=== PATIENT | female | born 1985 | race Caucasian/White ===

== ENCOUNTER 2022-03-16 19:06 | Emergency (ER) | payer OTHER, SELFPAY ==
[2022-03-16 19:43] VITALS: BP 130/74; PULSE 95; RESP 18; TEMP 37.4; O2SAT 98; BMI 27.0
[2022-03-16 20:29] LABS: Appearance Urine Clear (Clear); Bilirubin Urine Negative (Negative); Blood Urine 3+ (Negative); Color Urine Yellow (Yellow); Glucose Urine Negative (Negative); Ketones Urine 3+ (Negative); Leukocyte Esterase Urine Negative (Negative); Nitrite Urine Negative (Negative); Protein Urine Negative (Negative); Specific Gravity Urine 1.015 (1.000-1.030); Urobilinogen Urine 0.2 (0.2-1.0)
--- NOTE | 2022-03-16 20:33 | ED.BACK ---
HPI - Back Pain/Injury General Time Seen by Provider: 20:34 Date Seen: 03/16/22 Chief Complaint: Back Injury/Pain Stated Complaint: Pain, suspected slipped disk Time Seen by Provider: 03/16/22 20:33 Source: patient, RN notes reviewed and old records reviewed Mode of arrival: ambulatory Limitations: no limitations History of Present Illness HPI Narrative: Sarah is a very pleasant 36-year-old female with a history tobacco use, and chronic back pain who comes to the emergency room with increasing back pain. Patient notes that over the past few days even week she has had increasing back pain now it is centered on the right side radiating around to her side. It is associated with frequent urination but no dysuria. Patient denies possibility of as she is on control and took a test a few weeks ago. She has not had any nausea. She did have a sore throat this morning but attributed this to smoking. She is preferring to lay quietly. Does not feel that movement greatly increases her discomfort. Pain does radiate down the back of both legs not past the knees. Related Data Home Medications Medication Instructions Recorded Confirmed Tylenol 03/16/22 albuterol sulfate 2.5 mg/3 mL mg 03/16/22 (0.083 %) solution for nebulization Previous Rx's Medication Instructions Recorded ciprofloxacin HCl 500 mg tablet 500 mg PO BID #10 tabs 03/16/22 Allergies Allergy/AdvReac Type Severity Reaction Status Date / Time amoxicillin AdvReac yeast Verified 03/16/22 21:10 infections Penicillins AdvReac Verified 03/16/22 21:10 Review of Systems Const: Reports: other (States always feels cold); Denies: fever or chills Eyes: Denies: change in vision ENMT: Reports: throat pain; Denies: throat swelling or difficulty swallowing Cardio: Denies: chest pain, swelling of feet/ankles or shortness of breath with exertion Resp: Denies: shortness of breath, cough or wheezing GI: Denies: abdominal pain, nausea, vomiting, diarrhea or difficulty swallowing : Reports: urinary frequency; Denies: painful urination, urinary urgency or blood in urine Musculo: Reports: back pain Integ/Breast: Denies: rash Neuro: Reports: headache Allergy/Immuno: Denies: throat swelling or wheezing PFSH PFSH Social History Smoking Status: Current every day smoker How often do you have a drink containing alcohol: monthly or less AUDIT-C Alcohol total score: 1 Non-prescribed substance use: denies use Exam Narrative: Exam Narrative: Patient is alert and oriented. Very pleasant young woman. No acute distress but she does appear to be uncomfortable. Eyes are clear. Head is atraumatic normocephalic. Neck is supple no lymphadenopathy. Movement full. Oral cavity with moist mucous membranes. No significant erythema or exudate in posterior oropharynx. Heart with regular rate and rhythm. Lungs are clear to auscultation. Abdomen is soft nontender. Palpation down spine shows some mild tenderness noted at the base over the sacrum and L5. No skin changes here. Positive for right CVA tenderness with percussion. Able to sit up without difficulty. Lower extremity strength and motion intact. No lower extremity edema. Const: Vital Signs, click to edit/add: Vital Signs - 24 hr 03/16/22 19:43 03/16/22 21:15 Temperature 99.3 F Pulse Rate [Left P ulse Oximeter] 95 89 Respiratory Rate 18 18 Blood Pressure [Le ft Upper Arm] 125/74 Blood Pressure [Ri ght Upper Arm] 130/74 Pulse Oximetry 98 95 Oxygen Delivery Me thod Room Air Room Air Documenting provider has reviewed patient's vital signs: yes Course Course Hospital Course: Will place IV, Toradol 15 mg IV and normal saline 1 L. CBC, comprehensive panel, CRP, urinalysis with is ordered. Plan on CT but would like to wait for full urinalysis as well as creatinine. Differential diagnosis does include but is not limited to musculoskeletal pain, kidney stones, pyelonephritis, COVID. Reevaluation(s) Reevaluation #1: Patient is feeling improved after Toradol and fluids. She did receive 2 L of fluids. No evidence of stone on CT in spite of hematuria Vital Signs Vital signs: Initial Vital Signs Temperature 99.3 F 03/16/22 19:43 Temperature Source Temporal Artery Scan 03/16/22 19:43 Pulse Rate 95 03/16/22 19:43 Respiratory Rate 18 03/16/22 19:43 Blood Pressure 130/74 03/16/22 19:43 Blood Pressure Mean 92 03/16/22 19:43 Blood Pressure Position Sitting 03/16/22 19:43 Pulse Oximetry 98 03/16/22 19:43 Oxygen Delivery Method 03/16/22 19:43 Vital Signs Temperature 99.3 F 03/16/22 19:43 Pulse Rate 95 03/16/22 19:43 Respiratory Rate 18 03/16/22 19:43 Blood Pressure 130/74 03/16/22 19:43 Pulse Oximetry 98 03/16/22 19:43 Oxygen Delivery Method 03/16/22 19:43 Temperature 99.3 F 03/16/22 19:43 Pulse Rate 89 03/16/22 21:15 Respiratory Rate 18 03/16/22 21:15 Blood Pressure 125/74 03/16/22 21:15 Pulse Oximetry 95 03/16/22 21:15 Oxygen Delivery Method 03/16/22 21:15 MDM - Back Pain/Injury MDM Narrative Medical decision making narrative: 1. COVID-patient has tested positive for COVID which would be consistent with a mild leukopenia. She has been afebrile in the emergency room with appropriate oxygen levels. She is eligible for antiviral but declines at this time. Limiting tobacco use. Of course seek medical attention for worsening symptoms. 2. Hematuria-no evidence of stone on CT. I think that it is important we send this urine for culture. I am suspicious of UTI. Rocephin 1 g IV at this time. Cipro 500 mg p.o. b.i.d. will be started. Patient has a follow-up appoint with her primary on WednesdayMarch 18. At that time would have them checked the culture and the may discontinue the antibiotic if the culture is negative. 3. Disposition-ibuprofen or Tylenol as needed for discomfort. Push fluids. No work this week. Return to the emergency room for worsening symptoms. Lab Data Attestation: I reviewed the patient's lab results. Labs: Lab Results 03/16/22 03/16/22 03/16/22 Range/Units 20:19 20:40 20:41 WBC (4.50-11.00) K/uL RBC (4.00-5.20) m/uL Hgb (12.0-16.0) gm/dL Hct (33.0-51.0) % MCV (80-100) fL MCH (26-34) pg MCHC (32-36) gm/dL RDW Coeff of Jamie (11.5-15.5) % Plt Count (140-440) K/uL Neut % (Auto) (42.0-72.0) % Lymph % (Auto) (20-44) % Leslie % (Auto) (0.0-11.0) % Eos % (Auto) (0.0-7.0) % Baso % (Auto) (0.0-3.0) % Neut # (Auto) (1.7-7.0) K/uL Lymph # (Auto) (0.90-2.90) K/uL Leslie # (Auto) (0.00-0.90) K/UL Eos # (Auto) (0.00-0.50) K/uL Baso # (Auto) (0.00-0.30) K/uL Abs Immat Gran (auto) (0.00-0.30) K/uL Sodium (135-149) mmol/L Potassium (3.6-5.1) mmol/L Chloride (96-114) mmol/L Carbon Dioxide (20-32) mmol/L BUN (5-24) mg/dL Creatinine (0.5-1.5) mg/dL Estimated Creat Clear Estimated GFR ml/min Glucose (60-115) mg/dL Calcium (8.4-10.6) mg/dL Total Bilirubin (0.1-1.5) mg/dL AST (12-35) U/L ALT (4-35) U/L Alkaline Phosphatase (40-150) U/L C-Reactive Protein (0.5-1.0) mg/dL Total Protein (6.0-8.3) g/dL Albumin (3.3-5.0) g/dL Urine Color Yellow Yellow (Yellow) Urine Appearance Clear Clear (Clear) Urine pH 6.0 6.0 (5.0-8.5) Ur Specific [place] 1.015 1.015 (1.000-1.030) Urine Protein Negative Negative (Negative) Urine Glucose (UA) Negative Negative (Negative) Urine Ketones 3+ A 3+ A (Negative) Urine Blood 3+ A 3+ A (Negative) Urine Nitrite Negative Negative (Negative) Urine Bilirubin Negative Negative (Negative) Urine Urobilinogen 0.2 0.2 (0.2-1.0) Ur Leukocyte Esterase Negative Negative (Negative) Urine RBC 5-10 A 10-25 A (0-2) Urine WBC 2-5 0-2 (0-5) Ur Squamous Epith Cells None None (None-Few) Urine Bacteria None None (None) Urine HCG, Qual Negative (Negative) SARS-CoV-2 (PCR) (Negative) Influenza Type A (PCR) (Negative) Influenza Type B (PCR) (Negative) Group A Strep DNA (Not Detectd) 03/16/22 03/16/22 03/16/22 Range/Units 20:43 20:43 21:00 WBC 3.98 L (4.50-11.00) K/uL RBC 4.51 (4.00-5.20) m/uL Hgb 13.9 (12.0-16.0) gm/dL Hct 41.6 (33.0-51.0) % MCV 92 (80-100) fL MCH 31 (26-34) pg MCHC 33 (32-36) gm/dL RDW Coeff of Jamie 11.7 (11.5-15.5) % Plt Count 161 (140-440) K/uL Neut % (Auto) 82.0 H (42.0-72.0) % Lymph % (Auto) 4.8 L (20-44) % Leslie % (Auto) 12.3 H (0.0-11.0) % Eos % (Auto) 0.3 (0.0-7.0) % Baso % (Auto) 0.3 (0.0-3.0) % Neut # (Auto) 3.30 (1.7-7.0) K/uL Lymph # (Auto) 0.20 L (0.90-2.90) K/uL Leslie # (Auto) 0.50 (0.00-0.90) K/UL Eos # (Auto) 0.00 (0.00-0.50) K/uL Baso # (Auto) 0.00 (0.00-0.30) K/uL Abs Immat Gran (auto) 0.01 (0.00-0.30) K/uL Sodium (135-149) mmol/L Potassium (3.6-5.1) mmol/L Chloride (96-114) mmol/L Carbon Dioxide (20-32) mmol/L BUN (5-24) mg/dL Creatinine (0.5-1.5) mg/dL Estimated Creat Clear Estimated GFR ml/min Glucose (60-115) mg/dL Calcium (8.4-10.6) mg/dL Total Bilirubin (0.1-1.5) mg/dL AST (12-35) U/L ALT (4-35) U/L Alkaline Phosphatase (40-150) U/L C-Reactive Protein (0.5-1.0) mg/dL Total Protein (6.0-8.3) g/dL Albumin (3.3-5.0) g/dL Urine Color (Yellow) Urine Appearance (Clear) Urine pH (5.0-8.5) Ur Specific [place] (1.000-1.030) Urine Protein (Negative) Urine Glucose (UA) (Negative) Urine Ketones (Negative) Urine Blood (Negative) Urine Nitrite (Negative) Urine Bilirubin (Negative) Urine Urobilinogen (0.2-1.0) Ur Leukocyte Esterase (Negative) Urine RBC (0-2) Urine WBC (0-5) Ur Squamous Epith Cells (None-Few) Urine Bacteria (None) Urine HCG, Qual (Negative) SARS-CoV-2 (PCR) POSITIVE SARS-CoV-2 A (Negative) Influenza Type A (PCR) Negative PCR FLU A (Negative) Influenza Type B (PCR) Negative PCR FLU B (Negative) Group A Strep DNA NOT DETECTED (Not Detectd) 03/16/22 Range/Units 21:00 WBC (4.50-11.00) K/uL RBC (4.00-5.20) m/uL Hgb (12.0-16.0) gm/dL Hct (33.0-51.0) % MCV (80-100) fL MCH (26-34) pg MCHC (32-36) gm/dL RDW Coeff of Jamie (11.5-15.5) % Plt Count (140-440) K/uL Neut % (Auto) (42.0-72.0) % Lymph % (Auto) (20-44) % Leslie % (Auto) (0.0-11.0) % Eos % (Auto) (0.0-7.0) % Baso % (Auto) (0.0-3.0) % Neut # (Auto) (1.7-7.0) K/uL Lymph # (Auto) (0.90-2.90) K/uL Leslie # (Auto) (0.00-0.90) K/UL Eos # (Auto) (0.00-0.50) K/uL Baso # (Auto) (0.00-0.30) K/uL Abs Immat Gran (auto) (0.00-0.30) K/uL Sodium 136 (135-149) mmol/L Potassium 3.8 (3.6-5.1) mmol/L Chloride 105 (96-114) mmol/L Carbon Dioxide 21 (20-32) mmol/L BUN 3 L (5-24) mg/dL Creatinine 0.7 (0.5-1.5) mg/dL Estimated Creat Clear 118.35 Estimated GFR 116 ml/min Glucose 91 (60-115) mg/dL Calcium 8.6 (8.4-10.6) mg/dL Total Bilirubin 0.3 (0.1-1.5) mg/dL AST 20 (12-35) U/L ALT 15 (4-35) U/L Alkaline Phosphatase 72 (40-150) U/L C-Reactive Protein 1.8 H (0.5-1.0) mg/dL Total Protein 7.2 (6.0-8.3) g/dL Albumin 4.2 (3.3-5.0) g/dL Urine Color (Yellow) Urine Appearance (Clear) Urine pH (5.0-8.5) Ur Specific [place] (1.000-1.030) Urine Protein (Negative) Urine Glucose (UA) (Negative) Urine Ketones (Negative) Urine Blood (Negative) Urine Nitrite (Negative) Urine Bilirubin (Negative) Urine Urobilinogen (0.2-1.0) Ur Leukocyte Esterase (Negative) Urine RBC (0-2) Urine WBC (0-5) Ur Squamous Epith Cells (None-Few) Urine Bacteria (None) Urine HCG, Qual (Negative) SARS-CoV-2 (PCR) (Negative) Influenza Type A (PCR) (Negative) Influenza Type B (PCR) (Negative) Group A Strep DNA (Not Detectd) Imaging Data CT scan - abdomen: Attestation: I have reviewed the pertinent imaging results. My impression: No acute finding Radiologist's impression: ?No renal or ureteral calculi, or findings of obstructive uropathy. 2. No other significant abnormality or findings to explain the cause of the patient`s symptoms, within limitations of lack of contrast. Discharge Plan Discharge Clinical Impression: COVID, Hematuria, Back pain Patient Disposition: Home, Self-Care Condition: Improved Additional Instructions: For COVID: Push fluids. Ibuprofen and Tylenol as needed for discomfort. For blood in urine: I have sent the urine for culture. You have worry regarding possibility of an infection. There was no evidence of stone on your CT. We will continue you on Cipro for possible UTI. May discontinue this medication if the culture is negative. Your provider can check that on Wednesday when you have an appointment. Make sure to wear your mask because you have COVID. Prescriptions: New ciprofloxacin HCl 500 mg tablet 500 mg PO BID Qty: 10 0RF No Action albuterol sulfate 2.5 mg /3 mL (0.083 %) solution for nebulization Label Comments: USE 1 VIAL IN NEBULIZER EVERY 6 HOURS NEEDED FOR COUGH USE 1ST CHOICE Tylenol Follow Up/Referrals: Teresa Ojeda MD [Primary Care Provider] - Stand Alone Forms: [facility] Info Instructions
[2022-03-16] MEDS: 0.9 % SODIUM CHLORIDE 1000 ml 1,000 ML IV ×2 (21:03→22:09)
[2022-03-16] MEDS: KETOROLAC 15 MG/ML inj IVP (21:05)
[2022-03-16 21:14] LABS: Basophils Percent Auto 0.3 % (0.0-3.0); Eosinophils Percent Auto 0.3 % (0.0-7.0); Hematocrit 41.6 % (33.0-51.0); Hemoglobin* 13.9 gm/dL (12.0-16.0); Immature Granulocytes Abs Auto 0.01 K/uL (0.00-0.30); Lymphocytes Percent Auto 4.8 % (20-44); Mean Corpuscular HGB Conc 33 gm/dL (32-36); Mean Corpuscular Hemoglobin 31 pg (26-34); Mean Corpuscular Volume 92 fL (80-100); Monocytes Percent Auto 12.3 % (0.0-11.0); Platelet Count* 161 K/uL (140-440); RDW Coefficient of Variation % 11.7 % (11.5-15.5); Red Blood Count 4.51 m/uL (4.00-5.20); White Blood Count* 3.98 K/uL (4.50-11.00)
[2022-03-16 21:15] VITALS: BP 125/74; PULSE 89; RESP 18; O2SAT 95
[2022-03-16 21:16] LABS: Slide Review Reflex No
[2022-03-16 21:17] LABS: Ur HCG Qualitative* Negative (Negative)
[2022-03-16 21:27] LABS: Albumin* 4.2 g/dL (3.3-5.0); Chloride* 105 mmol/L (96-114); Sodium* 136 mmol/L (135-149)
[2022-03-16 21:28] LABS: Potassium* 3.8 mmol/L (3.6-5.1)
--- OUTSIDE RECORDS SUMMARY | 2022-03-16 21:28 | XMS_ITS | Clinical Summary ---
:1985 Author Organization [facility] [place] [address] Care Team Providers Name Role Phone Lynette, Teresa Noriega MD Primary Care Provider [phone] Og Chambers MD Unavailable Deshaun Saunders MD Unavailable Allergies Active Allergy Reactions Severity Noted Date Comments Amoxicillin 12/07/2008 YEAST INFECTION S Penicillins 12/07/2008 GETS YEAST INFE CTIONS Medications Medication Sig Dispensed Refills Start Date End Date Status NebulizerIndications: Nebulizer, neb 1 Device 0 08/09/2015 Active Mild intermittent kit, neb cup and asthma with acute mask. Medication: exacerbation, albuterol For Bronchitis home use. Length of need for Medicare patients: 99 Cholecalciferol, Take 1 tablet by 0 05/18/2016 Active Vitamin D3, (VITAMIN mouth once daily. D-3) 2,[address] under the 0 05/18/2016 Active (VITAMIN B-12) 2,500 tongue once mcg tablet daily. VENTOLIN HFA 90 INHALE ONE TO TWO 1 Inhaler 11 09/16/2016 Active mcg/actuation PUFFS BY MOUTH inhalerIndications: EVERY 4 HOURS Mild intermittent NEEDED asthma with acute exacerbation montelukast TAKE ONE TABLET 90 tablet 3 07/14/2017 A ctive (SINGULAIR) 10 mg BY MOUTH AT tabletIndications: BEDTIME Asthma budesonide-formoterol Inhale 2 Puffs by 1 Inhaler 11 08/05/2017 Active (SYMBICORT) 160-4.5 mouth 2 times mcg/actuation (160-4.5 daily. mcg each actuation) inhalerIndications: Moderate persistent asthma without complication albuterol (PROVENTIL) Inhale 3 mL (2.5 180 mL 0 06/27/2021 Active 0.083 % neb mg) via a solutionIndications: nebulizer every 6 Moderate persistent hours if needed asthma with for Cough 1st exacerbation choice. mometasone-formoterol Inhale 2 Puffs by 13 g 0 06/30/2021 Active (DULERA) 200-5 mouth 2 times mcg/actuation daily. inhalerIndications: Moderate persistent asthma with exacerbation benzonatate (Tessalon Take 1 Capsule 30 Capsule 0 06/30/2021 Active Perles) 100 mg (100 mg) by mouth capsuleIndications: 3 times daily if Cough needed for Cough. azithromycin Take 500 mg (2 6 Tablet 0 06/30/2021 A ctive (Zithromax Z-Chris) 250 tabs) by mouth on mg tabletIndications: day 1, then 250 Bronchitis with mg (1 tab) daily bronchospasm for days 2-5. Active Problems Problem Noted Date Cervical radiculopathy at C6 04/12/2017 Asthma 11/13/2014 Myofascial muscle pain 10/23/2014 Anxiety 11/13/2011 Rectal bleeding 12/10/2010 Overview: Colonoscopy 11/2010 normal Resolved Problems Problem Noted Date Resolved Date state, incidental 06/17/2009 01/06/2011 Immunizations Name Administration Dates Next Due DTP 08/11/1989, 1987, 1987 DTaP 01/24/1993 Hepatitis B (Adult) 02/03/2000, 01/06/2000 Hepatitis B (Peds) 07/02/2000 Hepatitis B, Unspecified 07/02/2000, 02/03/2000, 01/06/2000 Human Papilloma Virus Vaccine 11/13/2011, 05/04/2011, 2010 Influenza A (H1N1), Inactivated 04/03/2009 Influenza, IIV3 (Age >=3 years) 02/07/2010, 03/18/2007, 04/16, 03/15/2002 Influenza, IIV4 02/20/2014 MMR 01/06/2000, 08/11/1989 Oral Polio Vaccine 01/24/1993, 08/11/1989, 1987 Td (Age >=7 Years) 01/06/2000 Td, Preservative Free (age >= 7 01/06/2000 Years) Tdap 04/07/2010 Family History Medical History Relation Name Comments Good Health Father Arthritis Maternal Grandfather Cancer-colon Maternal Grandfather caitie to franco kelly. Diabetes Maternal Grandfather Heart Disease Maternal Grandfather Arthritis Maternal Grandmother Hypertension Maternal Grandmother Other Mother factor five Leid en Other Other 1 heart disease an d stroke on maternal side Cancer Other 2 non hodgkins lym ph[place] great grandmother Arthritis Paternal Grandfather Arthritis Paternal Grandmother Relation Name Status Comments Father Maternal Grandfather Maternal Grandmother Mother Other 1 Other 2 Paternal Grandfather Paternal Grandmother Social History Tobacco Use Types Packs/Day Years Used Date Current Every Day Smoker Cigarettes 0.5 Smokeless Tobacco: Never Used Tobacco Cessation: Ready to Quit: Yes; C ounseling Given: Yes Comments: 0.5-1 pack daily Alcohol Use Standard Drinks/Week Comments No 0 (1 standard drink = 0.6 oz pure alcoho l) Sex Assigned at Date Recorded Not on file Obstetrics History Para Term AB IAB SAB Ectopic Multiple Living Live Births 1 1 1 Date Outcome GA Total Labor/2nd/3rd Weight Sex Delivery Anes PTL Nguyen A 1 A5 Name Clin Labor Term Last Filed Vital Signs Vital Sign Reading Time Taken Comments Blood Pressure 119/75 06/30/2021 8:13 AM [employer] Pulse 92 06/30/2021 8:12 AM [employer] Temperature 36.7 ??C (98 ??F) 06/30/2021 8:13 AM [employer] Respiratory Rate 20 11/30/2017 9:03 AM CDT Oxygen Saturation 100% 06/30/2021 8:12 AM [employer] Inhaled Oxygen Concentration - - Weight 82.6 kg (182 lb) 06/27/2021 8:52 AM [employer] Height 172.7 cm (5' 8) 03/27/2019 3:26 PM [employer] Body Mass Index 27.67 03/27/2019 3:26 PM [employer] Plan of Treatment Upcoming Encounters Date Type Specialty Care Team Description 03/18/2022 Office Visit Dorina Reyes MD [address] [facility] [place] [id number] (Wo rk) Health Maintenance Due Date Last Done Comments COVID-19 vaccine series (#1) 1985 Pneumococcal series for age 19-64 1993 (1 - PCV) Hepatitis C screening for age 1204/21/2005 18-79 Pap test for age 21-65 08/28/2017 08/28/2014, 11/13/2011, 03/07/2010, Additional history exists Depression screening for age 12+ 12/22/2019 12/21/2018, , 01/12/2018, Additional history exists BMI (ht and wt on same day) for 03/27/2020 03/27/2019, 11/15, age 18+ 05/30/2018, Additional history exists Tetanus booster 04/07/2020 04/07/2010, 01/06/2000, 01/06/2000 Influenza for age 9-49 01/15/2022 02/20/2014, 02/07/2010, 04/03/2009, Additional history exists Tdap Completed 04/07/2010 Results Not on filefrom Last 3 Months Insurance Payer Benefit Plan / Subscriber ID Effective Dates Phone Addre ss Type Group [employer] [id number] 2018-Prese [address] [place] [address] WC WORKERS WC SFM [id number] 2020-Prese [address] [place] [address] MEDICA MEDICA APPLAUSE [id number] 2021-Presen [address] [id number] t [place] [id number] (Home) [place] [id number] Sarah Beasley Workers Comp Self [address] (Home) [place] [id number] Sarah Beasley Motor Vehicle Self [address] (Home) [place] [id number] Care Teams Logging Engineer Relationship Specialty Start Date End Date Teresa Ojeda PCP - General Family Practice 08/20/[address] [place] [address] Og Chambers, Plastic Surgery Plastic and Reconstructive MD Surgery Deshaun Saunders MD Rheumatology Rheumatology 09/20/14 [address] [facility] [address] [place] [address]
[2022-03-16 21:30] LABS: Alanine Aminotransferase* 15 U/L (4-35); Alkaline Phosphatase* 72 U/L (40-150); Aspartate Amino Transferase* 20 U/L (12-35); Bilirubin Total* 0.3 mg/dL (0.1-1.5); Blood Urea Nitrogen* 3 mg/dL (5-24); Carbon Dioxide* 21 mmol/L (20-32); Creatinine* 0.7 mg/dL (0.5-1.5); Est. Creatinine Clearance* 118.35; Estimated Glomerular Filt Rate 116 ml/min; Total Protein* 7.2 g/dL (6.0-8.3)
[2022-03-16 21:30] LABS: Appearance Urine Clear (Clear); Bilirubin Urine Negative (Negative); Blood Urine 3+ (Negative); Color Urine Yellow (Yellow); Glucose Urine Negative (Negative); Ketones Urine 3+ (Negative); Leukocyte Esterase Urine Negative (Negative); Nitrite Urine Negative (Negative); Protein Urine Negative (Negative); Specific Gravity Urine 1.015 (1.000-1.030); Urobilinogen Urine 0.2 (0.2-1.0)
[2022-03-16 21:31] LABS: WBC Urine 0-2 (0-5)
[2022-03-16 21:31] LABS: Calcium* 8.6 mg/dL (8.4-10.6); Glucose* 91 mg/dL (60-115)
[2022-03-16 21:33] LABS: C Reactive Protein* 1.8 mg/dL (0.5-1.0)
--- NOTE | 2022-03-16 22:01 | CRLHL7_ITS ---
For Patients: As a result of the Century Cures Act, medical imaging exams and procedure reports are released immediately into your electronic medical record. You may view this report before your referring provider. If you have questions, please contact your health care provider. INDICATION: Hematuria. TECHNIQUE: CT abdomen and pelvis without contrast. Coronal and sagittal reformats were generated. COMPARISON: None. FINDINGS: Lower chest: Unremarkable. Liver: Unremarkable within limitations of lack of contrast. Gallbladder and bile ducts: Density in the gallbladder could be a gallstone. No wall thickening or pericholecystic fluid. Spleen: Unremarkable. Pancreas: Unremarkable. Adrenal glands: Unremarkable. No nodules. Kidneys and Ureters: No stones or hydronephrosis. Cortical hypodensity in the right kidney is suggestive of a cyst. Lymph Nodes and Retroperitoneum: Unremarkable. Vasculature: Unremarkable. GI tract: Unremarkable. Normal in caliber. Normal appendix. Peritoneum/Abdominal Wall: Unremarkable. No free air or free fluid. Pelvic Viscera: Unremarkable. Bladder: Unremarkable. Bones: Unremarkable for age. IMPRESSION: 1. No renal or ureteral calculi, or findings of obstructive uropathy. 2. No other significant abnormality or findings to explain the cause of the patient`s symptoms, within limitations of lack of contrast. Please note that all CT scans at this facility use dose modulation, iterative reconstruction, and/or weight-based dosing when appropriate to reduce radiation dose to as low as reasonably achievable. Dictated by Mino Phillip MD @ 03/16/2022 10:29:25 PM (Electronically Signed)
[2022-03-16 22:24] LABS: Strep A DNA Probe* NOT DETECTED (Not Detectd)
[2022-03-16 22:36] LABS: PCR FLU A Negative PCR FLU A (Negative); PCR FLU B Negative PCR FLU B (Negative)
[2022-03-16 23:00] LABS: SARS PCR* POSITIVE SARS-CoV-2 (Negative)
[2022-03-16] MEDS: cefTRIAXone 1 GM in 0.9 % SODIUM CHLORIDE Mini-bag 100 ML IVPB (23:34)
== END 2022-03-17 00:19 | disposition home or self-care (01) ==
PROVIDERS: Emergency Provider Family Medicine; PCP Family Medicine
DX: U07.1 COVID-19 (principal); R31.9 Hematuria, unspecified; M54.50 Low back pain, unspecified; F17.210 Nicotine dependence, cigarettes, uncomplicated; Z88.0 Allergy status to penicillin
CPT/HCPCS: 36415; 74176; 80053; 81001; 81003; 81015; 81025; 85025; 86140; 87086; 87631; 87651; 96361; 96365; 96374; 96375; 99284; J0696; J1885; J7030

== ENCOUNTER 2023-02-16 15:20 | Emergency (ER) | payer OTHER, SELFPAY ==
[2023-02-16 15:30] VITALS: BP 115/67; PULSE 86; RESP 18; TEMP 36.9; O2SAT 99; BMI 29.5
--- NOTE | 2023-02-16 16:24 | CRLHL7_ITS ---
For Patients: As a result of the Century Cures Act, medical imaging exams and procedure reports are released immediately into your electronic medical record. You may view this report before your referring provider. If you have questions, please contact your health care provider. INDICATION: Right lower quadrant pain TECHNIQUE: CT abdomen and pelvis without contrast. COMPARISON: CT 03/16/2022 FINDINGS: Lower chest: Basilar atelectasis. Liver: Unremarkable. Spleen: Unremarkable. Pancreas: Unremarkable. Gallbladder and bile ducts: Unremarkable. Kidneys: Low-attenuation lesion in the right kidney incompletely assessed no kidney or ureteral stones and no hydronephrosis. Adrenal glands: Unremarkable. GI tract: Unremarkable. Appendix is normal. Abundant stool in the colon Vascular structures: Unremarkable. Lymph nodes: Unremarkable. Miscellaneous: Unremarkable. No free air or significant free fluid. Pelvic Organs: Unremarkable. Bones: Unremarkable for age. IMPRESSION: 1. No acute findings in the abdomen or pelvis. Normal appendix. Please note that all CT scans at this facility use dose modulation, iterative reconstruction, and/or weight-based dosing when appropriate to reduce radiation dose to as low as reasonably achievable. Dictated by Klarissa Malik MD @ 02/16/2023 6:14:03 PM (Electronically Signed)
--- NOTE | 2023-02-16 16:25 | ED_ITS ---
HPI - Abdominal Pain General Chief Complaint: Abdominal Pain Stated Complaint: Lower R abdominal pain Time Seen by Provider: 02/16/23 15:24 History of Present Illness HPI narrative: This 37-year-old female comes in with right lower quadrant abdominal pain for the past couple weeks. This is been present since her dog jumped on her and landed on this area of her abdomen. Since then she has had pain in this area. She does not report any fever nausea or vomiting. She has had some diarrhea. She states that she was coughing last week and was worse with coughing. Related Data Home Medications Medication Instructions Recorded Confirmed Tylenol 03/16/22 albuterol sulfate 2.5 mg/3 mL mg 03/16/22 (0.083 %) solution for nebulization Previous Rx's Medication Instructions Recorded ciprofloxacin HCl 500 mg tablet 500 mg PO BID #10 tabs 03/16/22 ketorolac 10 mg tablet 10 mg PO Q8H 5 days #15 tabs 02/16/23 Allergies Allergy/AdvReac Type Severity Reaction Status Date / Time amoxicillin AdvReac yeast Verified 02/16/23 15:33 infections Penicillins AdvReac Verified 02/16/23 15:33 Review of Systems Status of ROS Reports: 10 or more systems reviewed and unremarkable except as noted in History and below Narrative Constitutional: No fevers, no weight gain or loss. Eyes: No discharge. No vision changes. HENT: No congestion, no sore throat, no ear pain. Cardiovascular: No chest pain, no palpitations. Respiratory: No shortness of breath, no wheezes, no cough. Gastrointestinal: Right lower quadrant abdominal pain. Some episodes of diarrhea. Genitourinary: No dysuria, no hematuria. Musculoskeletal: Normal range of motion. Skin: No rashes, no pruritis. Neurological: No dizziness, weakness, sensory change, speech change. Endo/Heme/Allergies: No bruising or bleeding. No polydipsia. Pysch: no suicidality, no anxiety, no insomnia. All other systems reviewed and are negative. [facility] Social History Smoking Status: Current every day smoker What tobacco products do you use: cigarettes How often do you have a drink containing alcohol: monthly or less AUDIT-C Alcohol total score: 1 Non-prescribed substance use: denies use Exam Narrative: Exam Narrative: Constitutional: Well-developed, well-nourished, no acute distress. HEENT: Normocephalic, atraumatic. Neck: Normal range of motion. Nontender. Supple. Heart: Regular. No murmurs. Normal rate. Intact distal pulses. Lungs: Clear to auscultation. No chest discomfort. No wheezes, rhonchi, or rales. Abdomen: Normal bowel sounds. Mild tenderness in the right lower quadrant. Rovsing sign is negative. No rebound tenderness. Genitalia: Deferred. Back: No midline tenderness. Normal range of motion. Extremities: Normal range of motion. No injury. Skin: Intact. No rash. Warm. No erythema or pallor. Neurologic: No altered sensation. No weakness. Alert and oriented. Psychiatric: No suicidality. No anxiety or depression. No insomnia. Nursing notes and vitals signs are reviewed. Const: Vital Signs, click to edit/add: Vital Signs - 24 hr 02/16/23 15:30 02/16/23 17:35 Temperature 98.4 F Pulse Rate [Pulse Oximeter] 86 69 Respiratory Rate 18 16 Blood Pressure [Le ft Upper Arm] 115/67 120/67 Pulse Oximetry 99 97 Oxygen Delivery Me thod Room Air Room Air Course Vital Signs Vital signs: Initial Vital Signs Temperature 98.4 F 02/16/23 15:30 Temperature Source Temporal Artery Scan 02/16/23 15:30 Pulse Rate 86 02/16/23 15:30 Respiratory Rate 18 02/16/23 15:30 Blood Pressure 115/67 02/16/23 15:30 Blood Pressure Mean 83 02/16/23 15:30 Blood Pressure Position Semi-Fowlers 02/16/23 15:30 Pulse Oximetry 99 02/16/23 15:30 Oxygen Delivery Method Room Air 02/16/23 15:30 Vital Signs Temperature 98.4 F 02/16/23 15:30 Pulse Rate 86 02/16/23 15:30 Respiratory Rate 18 02/16/23 15:30 Blood Pressure 115/67 02/16/23 15:30 Pulse Oximetry 99 02/16/23 15:30 Oxygen Delivery Method Room Air 02/16/23 15:30 Temperature 98.4 F 02/16/23 15:30 Pulse Rate 69 02/16/23 17:35 Respiratory Rate 16 02/16/23 17:35 Blood Pressure 120/67 02/16/23 17:35 Pulse Oximetry 97 02/16/23 17:35 Oxygen Delivery Method Room Air 02/16/23 17:35 MDM - Abdominal Pain MDM Narrative Medical decision making narrative: This patient has pain in her right lower abdomen ever since her dog happen to jump onto her abdomen. This occurred a couple weeks ago. She states that the pain is worse when coughing and with certain maneuvers. I did obtain a CT scan of the abdomen and pelvis without contrast and this shows no acute findings. The patient is thoroughly reassured with this good news. Most likely her symptoms are musculoskeletal. She is okay to be discharged home. She did receive a prescription for Toradol. Imaging Data CT scan - abdomen: Radiologist's impression: 1. No acute findings in the abdomen or pelvis. Normal appendix. Discharge Plan Discharge Clinical Impression: Abdominal pain Patient Disposition: Home, Self-Care Condition: Stable Additional Instructions: Take medication as needed and indicated. Increase activity as tolerated. Follow up with MD return if worsening. Prescriptions: New ketorolac 10 mg tablet 10 mg PO Q8H 5 Days Qty: 15 0RF No Action albuterol sulfate 2.5 mg /3 mL (0.083 %) solution for nebulization Patient Comments: USE 1 VIAL IN NEBULIZER EVERY 6 HOURS NEEDED FOR COUGH USE 1ST CHOICE Tylenol ciprofloxacin HCl 500 mg tablet 500 mg PO BID Qty: 10 0RF Follow Up/Referrals: Teresa Ojeda MD [Primary Care Provider] - Stand Alone Forms: [employer] Info Instructions
[2023-02-16 17:35] VITALS: BP 120/67; PULSE 69; RESP 16; O2SAT 97
== END 2023-02-16 18:40 | disposition home or self-care (01) ==
PROVIDERS: Emergency Provider Emergency Medicine Emergency Medical Services; PCP Family Medicine
DX: R10.31 Right lower quadrant pain (principal); W54.8XXA Other contact with dog, initial encounter
CPT/HCPCS: 74176; 99283; 99284

== ENCOUNTER 2024-03-07 07:39 | Emergency (ER) | payer OTHER, SELFPAY ==
[2024-03-07 07:43] VITALS: BP 106/74; PULSE 91; RESP 18; TEMP 36.5; O2SAT 99; BMI 26.7
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
== END 2024-03-07 11:08 | disposition home or self-care (01) ==
PROVIDERS: Emergency Provider Student in an Organized Health Care Education/Training Program; PCP Family Medicine
DX: S62.306A Unspecified fracture of fifth metacarpal bone, right hand, initial encounter for closed fracture (principal); W22.8XXA Striking against or struck by other objects, initial encounter
CPT/HCPCS: 26605; 73120; 73130; 99282; 99284